=== PATIENT | female | born 1970 | race Caucasian/White ===

== ENCOUNTER 2025-01-25 20:48 | Emergency (ER) | payer OTHER ==
[~2025-01-25] VITALS: Ht 167.6 cm; Wt 68.9 kg
[2025-01-25] MEDS ORDERED: CIPR-263 PO (21:22)
[2025-01-25] MEDS ORDERED: NYST15CR TP (21:22)
[2025-01-25 21:37] VITALS: BP 114/68; TEMP 98; O2SAT 99
== END 2025-01-25 21:38 | disposition home or self-care (01) ==
LOC: ER 20:48
DX: L08.9 Local infection of the skin and subcutaneous tissue, unspecified (principal); L97.528 Non-pressure chronic ulcer of other part of left foot with other specified severity; F17.210 Nicotine dependence, cigarettes, uncomplicated; Z90.49 Acquired absence of other specified parts of digestive tract
CPT/HCPCS: A4606; A4663

== ENCOUNTER 2025-03-02 19:36 | Emergency (ER) | payer OTHER ==
[~2025-03-02] VITALS: Ht 167.6 cm; Wt 69.9 kg
[~2025-03-02 19:36] MED LIST: CIPR-263 PO; NYST15CR TP
[2025-03-02 20:30] LABS: BASOPHILS % (AUTO) 0.5 % (0.0-2.0); EOSINOPHILS # (AUTO) 0.1 K/uL (0.0-0.7); EOSINOPHILS % (AUTO) 1.6 % (0.0-7.0); HEMOGLOBIN 13.5 g/dL (10.9-14.3); LYMPHOCYTES # (AUTO) 1.6 K/uL (0.8-4.8); LYMPHOCYTES % (AUTO) 21.1 % (20.5-51.5); MEAN CORPUSCULAR HEMOGLOBIN 29.2 uug (24.7-32.8); MEAN CORPUSCULAR HGB CONC 34 g/dL (32.3-35.6); MEAN CORPUSCULAR VOLUME 86.6 fL (75.5-95.3); MONOCYTES # (AUTO) 0.9 K/uL (0.1-1.30); MONOCYTES % (AUTO) 11.5 % (0.0-11.0); NEUTROPHILS % (AUTO) 65.3 % (38.5-71.5); PLATELET COUNT (AUTO) 319 K/uL (179-408); RED BLOOD CELL COUNT(AUTO) 4.62 MIL/uL (3.63-4.92); RED CELL DISTRIBUTION WIDTH 13.9 % (12.3-17.7); WHITE BLOOD COUNT (AUTO) 7.7 K/uL (3.8-11.8)
[2025-03-02 20:33] LABS: DIFFERENTIAL COMMENT 1
[2025-03-02 20:36] LABS: CREATININE 0.8 mg/dL (0.6-1.3); POTASSIUM 3.8 mmol/L (3.5-5.1)
[2025-03-02 20:42] LABS: ALBUMIN 3.6 g/dL (3.4-5.0); BILIRUBIN,DIRECT 0.2 mg/dL (0.0-0.2); BILIRUBIN,TOTAL 0.6 mg/dL (0.2-1.0); TOTAL PROTEIN, SERUM 7.8 g/dL (6.4-8.2)
[2025-03-02 20:49] LABS: LACTIC ACID 2.1 mmol/L (0.4-2.0)
[2025-03-02] MEDS ORDERED: KETOROLAC TROMETHAMINE 15 MG INJ ONE (21:38)
[2025-03-02] MEDS ORDERED: levoFLOXacin 750MG/D5W 150 ML IV ONE (21:38)
[2025-03-02] MEDS ORDERED: MORPHINE SULFATE 4 MG/1 ML DISP.SYRIN ONE (21:38)
[2025-03-02] MEDS: KETOROLAC TROMETHAMINE 15 MG INJ IVP ONE (21:46)
[2025-03-02] MEDS: MORPHINE SULFATE 4 MG/1 ML DISP.SYRIN IV ONE (21:46)
[2025-03-02] MEDS: levoFLOXacin 750 MG/D5W 150 ML PIGGYBACK IV ONE (21:46)
[2025-03-02] MEDS: IV NORMAL SALINE 250 ML BAG IV ONE (22:58)
[2025-03-02] MEDS: IV NS 1000 ML 1,000 ML IV ONE ×2 (22:58)
[2025-03-03] MEDS ORDERED: FAMOTIDINE. 20 MG/2 ML VIAL IV ONE (02:46)
[2025-03-03] MEDS ORDERED: ONDANSETRON 4 MG/2 ML VIAL ONE (02:46)
[2025-03-03] MEDS: ONDANSETRON 4 MG/2 ML VIAL IV ONE (02:47)
[2025-03-03] MEDS: FAMOTIDINE. 20 MG/2 ML VIAL IV ONE (02:47)
[2025-03-03] MEDS ORDERED: HYDR-4209 PO (03:43)
[2025-03-03] MEDS ORDERED: CIPR-262 PO (03:43)
[2025-03-03] MEDS ORDERED: CIPR7.5D LEFT EAR (03:43)
[2025-03-03 04:02] VITALS: BP 99/67; O2SAT 99
== END 2025-03-03 04:04 | disposition home or self-care (01) ==
LOC: ER 19:36
DX: H60.8X2 Other otitis externa, left ear (principal); H60.12 Cellulitis of left external ear; L13.8 Other specified bullous disorders; F17.210 Nicotine dependence, cigarettes, uncomplicated; Z90.49 Acquired absence of other specified parts of digestive tract
CPT/HCPCS: 99285; 96374; 70450; 96375 ×2; 96361; 80076; 80048; 85025; 85730; 86140; 87040 ×2; 36415; 83605 ×2; J1885; J1956; J2270; J1308; J2405; J7040; A4606; A4663